=== PATIENT | female | born 1950 | race Caucasian/White ===

== ENCOUNTER 2019-03-02 22:58 | Inpatient (IN) | payer OTHER, MEDICAID ==
[~2019-03-02] VITALS: Ht 144.8 cm; Wt 89.8 kg
[2019-03-02 23:00] VITALS: BP_SYST 157
--- NOTE | 2019-03-02 23:30 | NUR ---
Patient to ER bed 4 to gown for evaluation. Side rails up.
[2019-03-03] VITALS (7 sets, daily range): BP systolic 96–155
--- NOTE | 2019-03-03 00:10 | NUR ---
Dr. Sommer bedside for Pt eval
[2019-03-03] MEDS ORDERED: MORPHINE 2 MG/ML INJ. SYRINGE IVP ONE (00:15)
[2019-03-03] MEDS ORDERED: ASPIRIN 81 MG TAB.CHEW PO ONE (00:15)
--- NOTE | 2019-03-03 00:20 | NUR ---
Pt BIBA from [facility] to ED C/O COPD exacerbation and Bilat LE Edema. Pt with Hx of DM2, COPD, and Hernia. No other injuries and or complaints noted. VSS no s/s of acute distress. Resting on gurney with rails up
--- NOTE | 2019-03-03 00:30 | NUR ---
Portable X Ray bedside well tolerated
--- NOTE | 2019-03-03 01:00 | NUR ---
Pt taken to Radiology in stable condition
[2019-03-03 01:12] LABS: HEMOGLOBIN 12.7 g/dL (12.0-16.0); MEAN CORPUSCULAR HEMOGLOBIN 32 pg (27-31); PLATELET COUNT (AUTO) 215 K/uL (130-430); WHITE BLOOD COUNT (AUTO) 8.3 K/uL (4.8-10.8)
[2019-03-03 01:19] LABS: BASOPHILS # (AUTO) 0.1 K/uL (0.0-0.2); BASOPHILS % (AUTO) 1.1 % (0.0-2.0); EOSINOPHILS # (AUTO) 0.3 K/uL (0.0-0.4); EOSINOPHILS % (AUTO) 3.7 % (0.0-4.0); HEMATOCRIT 37.2 % (36-48); LYMPHOCYTES # (AUTO) 2.5 K/uL (1.0-5.5); MEAN CORPUSCULAR HGB CONC 34 % (32-36); MEAN CORPUSCULAR VOLUME 93 fL (79.0-98.0); MONOCYTES # (AUTO) 0.6 K/uL (0.0-1.0); MONOCYTES % (AUTO) 7.1 % (1.7-9.3); NEUTROPHILS # (AUTO) 4.8 K/uL (1.8-7.7); NEUTROPHILS % (AUTO) 58.1 % (40.0-70.0); RED BLOOD CELL COUNT(AUTO) 3.99 MIL/uL (4.2-6.2); RED CELL DISTRIBUTION WIDTH 15.2 % (9.0-15.0)
[2019-03-03] MEDS ORDERED: methylPREDNISolone SOD SUCC/PF 62.5 MG/ML VIAL IVP ONE (01:45)
[2019-03-03] MEDS ORDERED: IPRATROPIUM/ALBUTEROL SULFATE 3 ML AMPUL.NEB (DUONEB) INH ONE (01:45)
[2019-03-03 01:55] LABS: CALCIUM 8.7 mg/dL (8.4-11.0); CREATININE 1.51 mg/dL (0.55-1.30); POTASSIUM 3.7 mmol/L (3.5-5.1)
[2019-03-03 02:01] LABS: ALBUMIN 2.9 g/dL (3.4-4.8); TOTAL BILIRUBIN 0.3 mg/dL (0.0-1.0)
--- NOTE | 2019-03-03 02:48 | NUR ---
Patient will be admitted to care of DR. BARBOZA. Admitted to TELEMTRY unit. Will go to room 135. Summary report printed. Report will be given at bedside.
--- NOTE | 2019-03-03 03:05 | NUR ---
CALLED [facility] FOR BED, [place] STATES SHE WILL HAVE CHARGE NURSE CALL BACK.
--- NOTE | 2019-03-03 03:33 | NUR ---
ADMIT NOTE Received pt from ER to the floor with a diagnosis of COPD EXACERBATION. Admission process initiated. patient oriented to pain management, safety and call light-teach back done.
--- NOTE | 2019-03-03 03:33 | NUR ---
Patient will be admitted to care of Dr. Weiss. Admitted to Telemetry unit. Will go to room 122B. Belongings list completed. Summary report printed. Report will be given at bedside.
--- NOTE | 2019-03-03 03:33 | NUR ---
Transfer to Telemetry via ACLS protocol. Licensed nurse present. IV present no signs or symptoms of infiltration.
--- NOTE | 2019-03-03 04:00 | NUR ---
INITIAL NOTE AT INITIAL ASSESSMENT, PATIENT IS RESTING IN BED, STABLE, NO SIGNS OF RESPIRATORY DISTRESS. PATIENT VERBALIZES TOLERABLE (CHRONIC) PAIN AT THIS TIME. PLAN OF CARE FOR THE EVENING IS COMMUNICATED WITH THE PATIENT. PATIENT SUCCESSFULLY DEMONSTRATES USAGE OF CALL LIGHT AT THIS TIME. BED IS LOCKED, ALARMED, AND AT THE LOWEST LEVEL. FALL, SAFETY, AND RESPIRATORY PRECAUTIONS WILL BE TAKEN THROUGHOUT THE SHIFT.
--- NOTE | 2019-03-03 05:15 | NUR ---
NOTE PATIENT IS RESTING IN BED WATCHING TV, STABLE, NO SIGNS OF RESPIRATORY DISTRESS. CALL LIGHT IS WITHIN REACH. BED IS LOCKED, ALARMED, AND AT THE LOWEST LEVEL.
--- NOTE | 2019-03-03 06:50 | NUR ---
CLOSING NOTE AT THIS TIME, PATIENT IS RESTING IN BED, STABLE, NO SIGNS OF RESPIRATORY DISTRESS. CALL LIGHT IS WITHIN REACH. BED IS LOCKED, ALARMED, AND AT THE LOWEST LEVEL. FALL, SAFETY, AND RESPIRATORY PRECAUTIONS HAVE BEEN IN PLACE THROUGHOUT THE SHIFT. WILL CONTINUE TO MONITOR UNTIL SHIFT REPORT IS GIVEN AT BEDSIDE TO AM NURSE.
[2019-03-03] MEDS ORDERED: DULO60CA41 PO (08:11)
[2019-03-03] MEDS ORDERED: [UNRECOGNIZED DRUG - SUPPLY] (08:11)
[2019-03-03] MEDS ORDERED: HYDR-4274 PO (08:11)
[2019-03-03] MEDS ORDERED: POTA20TA83 PO (08:11)
[2019-03-03] MEDS ORDERED: GLIM2TAB2 PO (08:11)
[2019-03-03] MEDS ORDERED: OMEP20CA10 PO (08:11)
[2019-03-03] MEDS ORDERED: ALPR0.25 PO (08:11)
[2019-03-03] MEDS ORDERED: BUDE6.9H INH (08:11)
[2019-03-03] MEDS ORDERED: ONDA4TAB5 PO (08:11)
[2019-03-03] MEDS ORDERED: ARIP5TAB10 PO (08:11)
[2019-03-03] MEDS ORDERED: PRAV40TA PO (08:11)
--- NOTE | 2019-03-03 12:47 | NUR ---
ATTENDING Brina FINLEY DR WAS CALLED DIRECTLY, RE: PT HAS NO MEDICATION. LEFT A VOICE MESSAGE.
[2019-03-03] MEDS ORDERED: IPRATROPIUM/ALBUTEROL SULFATE 3 ML AMPUL.NEB (DUONEB) INH PRN (14:15)
[2019-03-03] MEDS ORDERED: INSULIN REGULAR, HUMAN 100 UNITS/ML, 10 ML VIAL (humuLIN R) SUBCUT PRN ×2 (14:15→14:30)
[2019-03-03] MEDS ORDERED: ONDANSETRON 4 MG ODT TAB PO PRN (14:15)
[2019-03-03] MEDS ORDERED: ARIPiprazole 5 MG TAB PO ONE (14:15)
[2019-03-03] MEDS ORDERED: DEXTROSE 50% JECT 50 ML DISP.SYRIN IVP PRN ×2 (14:15→14:30)
[2019-03-03] MEDS ORDERED: ENOXAPARIN SODIUM 30 MG/0.3 ML SYRINGE SUBCUT ONE (14:45)
[2019-03-03] MEDS ORDERED: DIATR MEGLU/DIATRIZ SOD 30 ML SOLUTION PO ONE (14:57)
[2019-03-03] MEDS ORDERED: PANTOPRAZOLE SODIUM 40 MG TAB PO ONE (15:00)
--- NOTE | 2019-03-03 15:00 | NUR ---
Dr Weiss aware that patient was admitted last noc, updated on present condition, and orders written. Cam Gray RN
--- NOTE | 2019-03-03 15:03 | NUR ---
CONSULTATION PAGED/CALLED Reason for Consultation: [] ABDOMINAL PAIN Person Who was Notified: [] JAMES Consulting Physician: [] DR Allie LINN Grants And Contracts Assistant Specialty: [] GI Ordering Physician: [] DR Donald GARDNER
--- NOTE | 2019-03-03 15:04 | NUR ---
CONSULTATION PAGED/CALLED Reason for Consultation: [] PSYCHOSIS Person Who was Notified: [] JAMES Consulting Physician: [] DR Nam RIVERA Laser Systems Engineer Specialty: [] PSYCH Ordering Physician: [] DR GARDNER
[2019-03-03] MEDS: ALPRAZolam 0.25 MG TABLET PO PRN (15:36)
--- NOTE | 2019-03-03 18:30 | NUR ---
Patient goes to CT Abd, and back and eating dinner. Patient had received xanax earler, and the anxiety has lessened after medication received. Cam Gray RN
--- NOTE | 2019-03-03 19:15 | NUR ---
change of shift.pt.presents stable status.pt.general status stable.respiratory status stable@room air.iv access;intact;patent iv acces lock.call light/telephone w/in reach of the pt.
[2019-03-03] MEDS: HYDROcodone/ACETAMIN 10-325 MG TAB PO PRN (19:41)
--- NOTE | 2019-03-03 20:00 | NUR ---
pt.assessed.v/s assessed;values w/in normal limits.i have apprised the pt.that snacks/beverages are available w/in the shift. no requests posited@this hour.pt.presents quiescent affect;calm,viewing tv programming.general status stable.respiratory status stable:02-sat%=97%@room air;unlabored breathing pattern/character.call light/telephone placed w/in reach of the pt.
--- NOTE | 2019-03-03 20:30 | NUR ---
i have assessed the blood glucose;value;129mg/dl.i have apprised the pt.of the values.i have assisted the pt.to the bsc. i have assisted the pt's return to bed.pt.repositioned.
[2019-03-03] MEDS: DOCUSATE SODIUM 250 MG CAPSULE PO SCH (20:33)
[2019-03-03] MEDS: SIMVASTATIN 20 MG TABLET PO SCH (20:33)
--- NOTE | 2019-03-03 21:00 | NUR ---
2100p medications administered.no requests posted @this hour.
--- NOTE | 2019-03-03 22:00 | NUR ---
pt.assessed.pt.presents quiescent affect;calm,somnolent.general status stable.respiratory status stable.pt.capable to reposition self. call light/telephone w/in reach of the pt.
--- NOTE | 2019-03-04 | NUR ---
pt.assessed,v/s assessed;values w/in normal limits.pt.presents quiescent affect;calm,somnolent.no c/o pain,nausea. pt.capable to rep in self.general status stable.respiratory status stable.call light/telephone placed w/in the reach of the pt.
[2019-03-04 00:40] VITALS: BP_SYST 117
[2019-03-04] MEDS: ALPRAZolam 0.25 MG TABLET PO PRN (01:58)
[2019-03-04] MEDS: HYDROcodone/ACETAMIN 10-325 MG TAB PO PRN ×4 (01:58→22:58)
--- NOTE | 2019-03-04 02:00 | NUR ---
pt.assessed.pt.requested medications:pain,anxiety.i have administered norco;10/325mg po to f/u re;pain medication efficacy per pain mgx protocol.i have administered xanax;0.25mg po.i have applied compression stockings to the pt.pt.capable to reposition self.no additional requests posited @this hour.general status stale.respiratory status stable.call light/telephone placed w/in reach of the pt.
--- NOTE | 2019-03-04 04:00 | NUR ---
pt.assessed.pt.presents quiescent affect;calm,somnolent.i have assessed the bsc;clean,iv access intact.general status stable. respiratory status stable;unlabored./pt.capable to reposition self.call light/telephone placed w/in reach of the pt.
--- NOTE | 2019-03-04 06:21 | NUR ---
pt.assessed.pt.presents quiescent affect;calm,somnolent.pt.assessed for cleanliness.pt.repositioned.i have assessed the blood glucose;values;90mg/dl.pt.declined snack/juice.no c/o pain,nausea.general status stable.respiratory status stable.call light/telephone placed w/in the reach of the pt.i have weighed the pt this am.
--- NOTE | 2019-03-04 07:13 | NUR ---
Nutrition Update Cristian Scale 16 noted. Pt admitted for COPD exacerbation Diet: Cardiac Low CHOL Low Fat 2gm Na BMI: 42.9 kg/m2 RD to follow per nutrition care standards.
[2019-03-04 07:15] LABS: BASOPHILS % (AUTO) 0.7 % (0.0-2.0); EOSINOPHILS # (AUTO) 0.3 K/uL (0.0-0.4); EOSINOPHILS % (AUTO) 4.3 % (0.0-4.0); HEMATOCRIT 35.4 % (36-48); HEMOGLOBIN 11.8 g/dL (12.0-16.0); LYMPHOCYTES # (AUTO) 2.3 K/uL (1.0-5.5); LYMPHOCYTES % (AUTO) 33.6 % (20.5-51.5); MEAN CORPUSCULAR HEMOGLOBIN 31 pg (27-31); MEAN CORPUSCULAR HGB CONC 33 % (32-36); MEAN CORPUSCULAR VOLUME 94 fL (79.0-98.0); MONOCYTES # (AUTO) 0.6 K/uL (0.0-1.0); MONOCYTES % (AUTO) 9.2 % (1.7-9.3); NEUTROPHILS # (AUTO) 3.5 K/uL (1.8-7.7); NEUTROPHILS % (AUTO) 52.2 % (40.0-70.0); PLATELET COUNT (AUTO) 183 K/uL (130-430); RED BLOOD CELL COUNT(AUTO) 3.78 MIL/uL (4.2-6.2); RED CELL DISTRIBUTION WIDTH 14.7 % (9.0-15.0); WHITE BLOOD COUNT (AUTO) 6.7 K/uL (4.8-10.8)
--- NOTE | 2019-03-04 07:35 | NUR ---
Opening note Patient sitting up in bed at this time, A/Ox4, no complaints of pain. IV patent, intact. No infiltration noted. No SOB. O2 sat 97% on room air. On safety and aspiration precautions, HOB kept elevated, bed alarm on, bed in lowest position, 3 side rails up. Call light within reach. Patient in stable condition, will continue to monitor.
[2019-03-04 07:55] LABS: ALBUMIN 2.6 g/dL (3.4-4.8); CREATININE 1.09 mg/dL (0.55-1.30); POTASSIUM 3.4 mmol/L (3.5-5.1); TOTAL BILIRUBIN 0.6 mg/dL (0.0-1.0)
[2019-03-04 08:35] VITALS: BP_SYST 121
--- NOTE | 2019-03-04 09:30 | NUR ---
Ambulation Assisted patient to the bedside commode, patient noted with 1 bowel movement. Skin care provided. Assisted patient back to bed. patient in stable condition.
[2019-03-04] MEDS: GLIMEPIRIDE 2 MG TABLET PO SCH (10:14)
[2019-03-04] MEDS: POTASSIUM CHLORIDE 20 MEQ TAB.PRT.SR PO SCH (10:14)
[2019-03-04] MEDS: ARIPiprazole 5 MG TAB PO SCH (10:14)
[2019-03-04] MEDS: DOCUSATE SODIUM 250 MG CAPSULE PO SCH ×2 (10:14→20:42)
[2019-03-04] MEDS: DULoxetine HCL 30 MG CAPSULE.DR (CYMBALTA) PO SCH (10:15)
[2019-03-04] MEDS: PANTOPRAZOLE SODIUM 40 MG TAB PO SCH (10:15)
[2019-03-04] MEDS: ENOXAPARIN SODIUM 30 MG/0.3 ML SYRINGE SUBCUT SCH (10:18)
--- NOTE | 2019-03-04 10:30 | NUR ---
medications All morning medications given as ordered. No adverse side effects noted. Tolerated well. No nausea, no vomiting.
[2019-03-04] MEDS ORDERED: PANTOPRAZOLE SODIUM 40 MG TAB PO ONE (10:45)
[2019-03-04 12:13] VITALS: BP_SYST 118
--- NOTE | 2019-03-04 12:50 | NUR ---
Lunch patient sitting up in bed at this time, eating lunch, tolerating well, no nausea, no vomiting noted.
--- NOTE | 2019-03-04 14:10 | NUR ---
Poultry Helper: Pt. has a psychiatrist consultation. INTEGRATED LOGISTICS OPERATIONS MANAGER met with pt. bedside. She was talkative and easily participated in this interview. Pt. was talking about getting ready to be discharges. She stated she has to give a urine sample, but was waiting for assistance to get dressed. Pt. stated she was at the hospital for a hernia but needs to lose weight. Pt. stated she had an opportunity to speak to the Serging Machine Operator Automatic to help her with her eating regimen. When asked, pt. stated she resides at [facility] in [place]. She said she suffers from Anxiety and takes medication. She stated she realizes she needs to take her meds. so she can continue to feel better. She said she has a psychologist, Dr. Ramesh, at [facility] and can see him upon request. INTEGRATED LOGISTICS OPERATIONS MANAGER will remain available upon request.
--- NOTE | 2019-03-04 14:40 | NUR ---
Dietitian Recommendations *[facility] per MD orders. Please see Nutritional Assessment for details. SEVEN, BRIDGETTE
--- NOTE | 2019-03-04 14:55 | NUR ---
rounds Patient sitting up in bed, no complaints of pain. No SOB, no complaints of pain. Offered to assist patient to the commode, patient refused. No needs at this time.
--- NOTE | 2019-03-04 15:41 | NUR ---
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 DCP made nurse aware and put ambulance on will call.
[2019-03-04 16:00] VITALS: BP_SYST 122
[2019-03-04 16:08] VITALS: BP_SYST 132
--- NOTE | 2019-03-04 16:30 | NUR ---
Report given Report given to Ana Cristina karimi. sister Raysa made aware of discharge.
--- NOTE | 2019-03-04 17:10 | NUR ---
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
--- NOTE | 2019-03-04 17:33 | NUR ---
CONSULTATION CALLED FOR Brina MACIEL FOR CONSULT OF VENTERAL HERNIA ORDER BY DR GARDNER SPOKE WITH MI
--- NOTE | 2019-03-04 18:40 | NUR ---
Closing note Patient sitting up in bed at this time, no complaints of pain. No infiltration noted. No SOB. O2 sat 97% on room air. On safety and aspiration precautions, HOB kept elevated, bed alarm on, bed in lowest position, 3 side rails up. Call light within reach. Patient in stable condition, all needs met.
[2019-03-04] MEDS: MUPIROCIN 2% TOPICAL OINTMENT 22 GM NS SCH (20:42)
[2019-03-04] MEDS: SIMVASTATIN 20 MG TABLET PO SCH (20:42)
[2019-03-04 20:50] VITALS: BP_SYST 129
--- NOTE | 2019-03-04 20:50 | NUR ---
Opening notes Pt AAOX4, VSS. No s/s distress noted. Pt updated with plan of care. Call light within reach. Bed low, locked, bed alarm on. To monitor.
--- NOTE | 2019-03-04 22:58 | NUR ---
PAIN MED PT AAOX3, PT C/O PAIN ABD, FRAN FEET 12/24. MEDICATED WITH [place] 10 1 TAB PO. CALL LIGHT/PHONE WITHIN EASY REACH. MAINTAINED CONTACT ISOLATION. TO MONITOR.
[2019-03-05 00:36] VITALS: BP_SYST 128
--- NOTE | 2019-03-05 01:45 | NUR ---
Rounds Pt asleep, easily arousable. No s/s distress noted. Call light within reach. Safety measures in place.
--- NOTE | 2019-03-05 04:35 | NUR ---
Rounds Pt asleep, no s/s distress noted. Call light within reach. Bed low, locked, siderails up x2, alarm on. Call light/items within reach.
[2019-03-05] MEDS: HYDROcodone/ACETAMIN 10-325 MG TAB PO PRN ×2 (06:35→13:21)
--- NOTE | 2019-03-05 06:35 | NUR ---
Closing notes Pt alert, awake, no s/s distress noted. Pt assisted to BSC and urine collected and sent to lab. Pt medicated for c/o pain with [place] 10 1 tab PO. Blood sugar checked 81. Call light within reach. Bed low, locked, side rails up x 3, bed alarm on. To endorse to AM nurse.
[2019-03-05 07:03] LABS: BILIRUBIN,URINE NEGATIVE (NEGATIVE); BLOOD, URINE NEGATIVE (NEGATIVE); CLARITY/URINE CLEAR (CLEAR); COLOR,URINE YELLOW (YELLOW); GLUCOSE,URINE NEGATIVE (NEGATIVE); KETONES,URINE NEGATIVE (NEGATIVE); LEUKOCYTE ESTERASE ,URINE 2+ (NEGATIVE); NITRITE, URINE NEGATIVE (NEGATIVE); PROTEIN URINE NEGATIVE (NEGATIVE); UROBILINOGEN,URINE 0.2 (0.2-1.0)
[2019-03-05 07:11] LABS: BACTERIA,URINE FEW /HPF (None Seen); RBC,URINE 0-3 /HPF (0-3); WBC,URINE 20-50 /HPF (0-3)
[2019-03-05 07:16] LABS: BARBITURATE, URINE NEGATIVE (NEG <=200); BENZODIAZEPINE, URINE POSITIVE (NEG <=150); CANNABINOID, URINE NEGATIVE (NEG <=50); COCAINE, URINE NEGATIVE (NEG <=150); METHAMPHETAMINES SCREEN,URINE NEGATIVE (NEG <=500); OPIATE, URINE POSITIVE (NEG <=100); PHENCYCLIDINE SCREEN,URINE NEGATIVE (NEG <=25); UR TRICYCLIC ANTIDEPRESSANTS NEGATIVE (NEG <=300); URINE AMPHETAMINE NEGATIVE (NEG <=500); URINE METHADONE NEGATIVE (NEG <=200); URINE OXYCODONE SCREEN NEGATIVE (NEG <=100); URINE PROPOXYPHENE SCREEN NEGATIVE (NEG <=300)
[2019-03-05] MEDS: MUPIROCIN 2% TOPICAL OINTMENT 22 GM NS SCH (09:05)
[2019-03-05] MEDS: GLIMEPIRIDE 2 MG TABLET PO SCH (09:05)
[2019-03-05] MEDS: POTASSIUM CHLORIDE 20 MEQ TAB.PRT.SR PO SCH (09:05)
[2019-03-05] MEDS: ARIPiprazole 5 MG TAB PO SCH (09:06)
[2019-03-05] MEDS: ALPRAZolam 0.25 MG TABLET PO PRN (09:06)
[2019-03-05] MEDS: PANTOPRAZOLE SODIUM 40 MG TAB PO SCH (09:06)
[2019-03-05] MEDS: DULoxetine HCL 30 MG CAPSULE.DR (CYMBALTA) PO SCH (09:06)
[2019-03-05] MEDS: DOCUSATE SODIUM 250 MG CAPSULE PO SCH (09:06)
[2019-03-05] MEDS: ENOXAPARIN SODIUM 30 MG/0.3 ML SYRINGE SUBCUT SCH (09:07)
--- NOTE | 2019-03-05 09:35 | NUR ---
medications All morning medications given as ordered. No adverse side effects noted. Tolerated well. No nausea, no vomiting.
--- NOTE | 2019-03-05 11:45 | NUR ---
Ambulation Assisted patient to the bedside commode, patient noted with 1 bowel movement. Skin care provided. Assisted patient back to bed. patient in stable condition.
[2019-03-05 12:00] VITALS: BP_SYST 137
--- NOTE | 2019-03-05 13:00 | NUR ---
Lunch patient sitting up in bed at this time, eating lunch, tolerating well, no nausea, no vomiting noted.
--- NOTE | 2019-03-05 13:31 | NUR ---
Discharge Planning: DCP spoke to Danielle at [facility] (f [phone] p [phone]) Rm 105A patient will be pit in a isolation room, transportation [facility] ([phone]) 3:00pm P/U. Packet taken to nurse station.
--- NOTE | 2019-03-05 15:30 | NUR ---
PT TRANSFERRED Report given to nurse at [facility]. Transfer packet with Transfer Orders and Medication Reconciliation form given to EMT with report. Exitcare provided. [facility] ID band removed, replaced with ID band with pt's name and . No IV site. All belongings sent with patient. Patient left floor via gurney escorted by EMT in no distress.
== END 2019-03-05 15:50 | DRG 393 ==
LOC: SED 22:58 → STU 03-03 02:46 → SMU 03-03 14:30
PROVIDERS: ADMIT Internal Medicine; ATTEND Internal Medicine
DX: K43.9 Ventral hernia without obstruction or gangrene (principal); N17.0 Acute kidney failure with tubular necrosis; J44.1 Chronic obstructive pulmonary disease with (acute) exacerbation; E44.1 Mild protein-calorie malnutrition; Z68.41 Body mass index [BMI] 40.0-44.9, adult; E11.9 Type 2 diabetes mellitus without complications; E66.9 Obesity, unspecified; F25.9 Schizoaffective disorder, unspecified; G47.33 Obstructive sleep apnea (adult) (pediatric); G89.4 Chronic pain syndrome; I10 Essential (primary) hypertension; F17.210 Nicotine dependence, cigarettes, uncomplicated; I25.10 Atherosclerotic heart disease of native coronary artery without angina pectoris; F41.9 Anxiety disorder, unspecified; F32.9 Major depressive disorder, single episode, unspecified; Z90.49 Acquired absence of other specified parts of digestive tract; Z88.2 Allergy status to sulfonamides; Z88.5 Allergy status to narcotic agent; Z88.8 Allergy status to other drugs, medicaments and biological substances; Z79.899 Other long term (current) drug therapy; Z79.1 Long term (current) use of non-steroidal anti-inflammatories (NSAID)
CPT/HCPCS: 36415; 71045; 80053; 80307; 81000-TC; 82550-TC; 82962; 83880; 84484; 85025; 85379; 87081; 93970; 94640; 96374; 97110-GP; 97116-GP; 97530-GP; 99285; J1650; J1815; J2270; J7620; Q9964

== ENCOUNTER 2019-09-07 14:57 | Inpatient (IN) | payer OTHER, MEDICAID ==
[~2019-09-07] VITALS: Ht 144.8 cm; Wt 97.1 kg
[~2019-09-07 14:57] MED LIST: ALPR0.25 PO; ARIP5TAB10 PO; BUDE6.9H INH; DULO60CA41 PO; GLIM2TAB2 PO; HYDR-4274 PO; OMEP20CA11 PO; ONDA4TAB5 PO; POTA20TA83 PO; PRAV40TA PO; [UNRECOGNIZED DRUG - SUPPLY]
[2019-09-07 15:09] VITALS: BP_SYST 116
[2019-09-07] MEDS ORDERED: DOCU250C14 PO (15:55)
[2019-09-07] MEDS ORDERED: LOZENGES PO (15:55)
[2019-09-07] MEDS ORDERED: OMEG1CAP48 PO (15:55)
[2019-09-07] MEDS ORDERED: FURO-149 PO (15:55)
[2019-09-07] MEDS ORDERED: CARB-61 PO (15:55)
[2019-09-07] MEDS ORDERED: SENAKOT PO (15:55)
[2019-09-07] MEDS ORDERED: ACET325T53 PO (15:55)
[2019-09-07] MEDS ORDERED: IBAN150T16 PO (15:55)
[2019-09-07] MEDS ORDERED: PANT40TA4 PO (15:55)
[2019-09-07] MEDS ORDERED: METO2.5T6 PO (15:55)
[2019-09-07] MEDS ORDERED: IPRA3AMP19 INH (15:55)
[2019-09-07] MEDS ORDERED: DULO60CA65 PO (15:55)
[2019-09-07] MEDS ORDERED: GLIM2TAB2 PO (15:55)
[2019-09-07] MEDS ORDERED: DIPH25TA62 PO (15:55)
[2019-09-07] MEDS ORDERED: BUDE6.9H INH (15:55)
[2019-09-07] MEDS ORDERED: MAGN500T20 PO (15:55)
[2019-09-07 16:23] LABS: BASOPHILS # (AUTO) 0.1 K/uL (0.0-0.2); BASOPHILS % (AUTO) 1.1 % (0.0-2.0); EOSINOPHILS # (AUTO) 0.3 K/uL (0.0-0.4); EOSINOPHILS % (AUTO) 3.8 % (0.0-4.0); HEMATOCRIT 37.2 % (36-48); HEMOGLOBIN 12.4 g/dL (12.0-16.0); LYMPHOCYTES # (AUTO) 2.3 K/uL (1.0-5.5); LYMPHOCYTES % (AUTO) 31.1 % (20.5-51.5); MEAN CORPUSCULAR HEMOGLOBIN 30 pg (27-31); MEAN CORPUSCULAR HGB CONC 33 % (32-36); MEAN CORPUSCULAR VOLUME 91 fL (79.0-98.0); MONOCYTES # (AUTO) 0.7 K/uL (0.0-1.0); PLATELET COUNT (AUTO) 269 K/uL (130-430); RED BLOOD CELL COUNT(AUTO) 4.08 MIL/uL (4.2-6.2); RED CELL DISTRIBUTION WIDTH 16.1 % (9.0-15.0); WHITE BLOOD COUNT (AUTO) 7.3 K/uL (4.8-10.8)
[2019-09-07 16:30] LABS: INR 0.9 (0.8-1.2)
[2019-09-07 16:43] LABS: ANION GAP 7 (5-15); CALCIUM 8.8 mg/dL (8.4-11.0); CHLORIDE 96 mmol/L (98-107); CREATININE 1.25 mg/dL (0.55-1.30); GLUCOSE 98 mg/dL (70-99); POTASSIUM 3.5 mmol/L (3.5-5.1); SODIUM SERUM 133 mmol/L (136-145); UREA NITROGEN, BLOOD 32 mg/dL (8-21)
[2019-09-07 16:45] LABS: GFR AFRICAN AMERICAN 55 mL/min (>90)
[2019-09-07 16:49] LABS: ALANINE AMINOTRANSFERASE 13 U/L (12-78); ALBUMIN 3.3 g/dL (3.4-4.8); ASPARTATE AMINOTRANSFERASE 18 U/L (10-37); TOTAL BILIRUBIN 0.3 mg/dL (0.0-1.0)
[2019-09-07] MEDS ORDERED: ASPIRIN 325 MG TABLET (ECOTRIN) PO ONE (17:15)
[2019-09-07] MEDS ORDERED: HYDROcodone/ACETAMIN 10-325 MG TAB PO ONE (17:15)
[2019-09-07 18:35] VITALS: BP_SYST 127
[2019-09-07 20:00] VITALS: BP_SYST 116
[2019-09-07] MEDS ORDERED: HYDROcodone/ACETAMIN 10-325 MG TAB PO PRN (20:30)
[2019-09-07] MEDS: MORPHINE 2 MG/ML INJ. SYRINGE IVP PRN (20:57)
[2019-09-08] VITALS: BP_SYST 130
[2019-09-08] MEDS: MORPHINE 2 MG/ML INJ. SYRINGE IVP PRN ×5 (01:04→17:05)
[2019-09-08] MEDS: IPRATROPIUM/ALBUTEROL SULFATE 3 ML AMPUL.NEB (DUONEB) INH SCH ×4 (03:18→15:31)
[2019-09-08 03:23] VITALS: BP_SYST 130
[2019-09-08] MEDS ORDERED: DIPHENHYDRAMINE HCL 50 MG CAPSULE PO PRN (05:30)
[2019-09-08 08:51] VITALS: BP_SYST 122
[2019-09-08] MEDS ORDERED: ACETAMINOPHEN 325 MG TABLET PO PRN (10:45)
[2019-09-08] MEDS ORDERED: LORazepam 2 MG/ML VIAL IVP PRN (10:45)
[2019-09-08] MEDS ORDERED: ALPRAZolam 0.25 MG TABLET PO PRN (10:45)
[2019-09-08] MEDS ORDERED: FUROSEMIDE 40 MG TABLET PO ONE (10:45)
[2019-09-08] MEDS ORDERED: DIPHENHYDRAMINE HCL 25 MG PO SCH (10:45)
[2019-09-08] MEDS ORDERED: ACETAMINOPHEN 325 MG TABLET PO SCH (10:45)
[2019-09-08] MEDS ORDERED: DOCUSATE SODIUM 250 MG CAPSULE PO ONE (10:45)
[2019-09-08] MEDS ORDERED: ONDANSETRON HCL 4 MG/2 ML VIAL IVP PRN (10:45)
[2019-09-08] MEDS ORDERED: PANTOPRAZOLE SODIUM 40 MG TAB PO ONE (10:45)
[2019-09-08] MEDS ORDERED: POTASSIUM CHLORIDE 20 MEQ TAB.PRT.SR PO ONE (10:45)
[2019-09-08] MEDS ORDERED: MAGNESIUM OXIDE 400 MG TABLET PO ONE (11:00)
[2019-09-08] MEDS ORDERED: ARIPiprazole 5 MG TAB PO ONE (11:00)
[2019-09-08] MEDS ORDERED: CARBIDOPA/LEVODOPA 25/100 MG TABLET PO ONE (11:00)
[2019-09-08] MEDS ORDERED: METOLAZONE 2.5 MG TABLET PO ONE (11:00)
[2019-09-08] MEDS ORDERED: SENNOSIDES 8.6 MG TABLET PO ONE (11:00)
[2019-09-08] MEDS ORDERED: DULoxetine HCL 30 MG CAPSULE.DR (CYMBALTA) PO ONE (11:00)
[2019-09-08] MEDS ORDERED: OMEGA-3/DHA/EPA/FISH OIL 1 GM CAPSULE PO ONE (11:00)
[2019-09-08] MEDS ORDERED: GLIMEPIRIDE 2 MG TABLET PO ONE (11:30)
[2019-09-08] MEDS ORDERED: BENZOCAINE/MENTHOL 1 EACH LOZENGE MM PRN (11:45)
[2019-09-08 12:13] VITALS: BP_SYST 116
[2019-09-08] MEDS ORDERED: NORMAL SALINE 5 ML DISP.SYRIN IVF SCH (14:00)
[2019-09-08] MEDS ORDERED: CARBIDOPA/LEVODOPA 25/100 MG TABLET PO SCH (15:00)
[2019-09-08 16:02] VITALS: BP_SYST 96
[2019-09-08 16:10] VITALS: BP_SYST 111
[2019-09-08] MEDS ORDERED: BUDESONIDE 0.5 MG/2 ML AMPUL.NEB INH SCH (19:00)
[2019-09-08] MEDS ORDERED: DOCUSATE SODIUM 250 MG CAPSULE PO SCH (21:00)
[2019-09-08] MEDS ORDERED: LOSARTAN POTASSIUM 25 MG TABLET PO ONE (21:00)
[2019-09-08] MEDS ORDERED: CARVEDILOL 3.125 MG TABLET (COREG) PO SCH (21:00)
[2019-09-08] MEDS ORDERED: BUDESONIDE/FORMOTEROL 80-4.5 mCg, 6.9 GM INHALER INH SCH (21:00)
[2019-09-08] MEDS ORDERED: MAGNESIUM OXIDE 400 MG TABLET PO SCH (21:00)
[2019-09-09] MEDS ORDERED: GLIMEPIRIDE 2 MG TABLET PO SCH (07:00)
[2019-09-09] MEDS ORDERED: POTASSIUM CHLORIDE 20 MEQ TAB.PRT.SR PO SCH (09:00)
[2019-09-09] MEDS ORDERED: PANTOPRAZOLE SODIUM 40 MG TAB PO SCH (09:00)
[2019-09-09] MEDS ORDERED: OMEGA-3/DHA/EPA/FISH OIL 1 GM CAPSULE PO SCH (09:00)
[2019-09-09] MEDS ORDERED: DULoxetine HCL 30 MG CAPSULE.DR (CYMBALTA) PO SCH (09:00)
[2019-09-09] MEDS ORDERED: SENNOSIDES 8.6 MG TABLET PO SCH (09:00)
[2019-09-09] MEDS ORDERED: ARIPiprazole 5 MG TAB PO SCH (09:00)
[2019-09-09] MEDS ORDERED: LOSARTAN POTASSIUM 25 MG TABLET PO SCH (09:00)
[2019-09-09] MEDS ORDERED: FUROSEMIDE 40 MG TABLET PO SCH (09:00)
[2019-09-09] MEDS ORDERED: METOLAZONE 2.5 MG TABLET PO SCH (09:00)
[2019-10-08] MEDS ORDERED: IBANDRONATE SODIUM 150 MG PO SCH (06:30)
== END 2019-09-08 18:38 | DRG 206 ==
LOC: SED 14:57 → STU 17:51
PROVIDERS: ADMIT Preventive Medicine Preventive Medicine/Occupational Environmental Medicine; ATTEND Preventive Medicine Preventive Medicine/Occupational Environmental Medicine
DX: M94.0 Chondrocostal junction syndrome [Tietze] (principal); Z68.42 Body mass index [BMI] 45.0-49.9, adult; I25.10 Atherosclerotic heart disease of native coronary artery without angina pectoris; E78.5 Hyperlipidemia, unspecified; E11.9 Type 2 diabetes mellitus without complications; K59.00 Constipation, unspecified; G20 Parkinson's disease; G89.29 Other chronic pain; R10.13 Epigastric pain; F99 Mental disorder, not otherwise specified; E66.9 Obesity, unspecified; J44.9 Chronic obstructive pulmonary disease, unspecified; M81.0 Age-related osteoporosis without current pathological fracture; Z88.6 Allergy status to analgesic agent; Z88.2 Allergy status to sulfonamides; Z88.8 Allergy status to other drugs, medicaments and biological substances; I25.2 Old myocardial infarction; Z79.84 Long term (current) use of oral hypoglycemic drugs; Z98.61 Coronary angioplasty status
CPT/HCPCS: 36415; 71045; 80053; 82962; 83880; 84484; 85025; 85610-TC; 85730-TC; 87081; 93005; 93306; 94640; 94760; 99285; G0378; J2270; J7626; Q0163